=== PATIENT | male | born 1980 | race Caucasian/White ===

== ENCOUNTER 2016-05-25 17:33 | Emergency (ER) | payer MEDICAID ==
[2016-05-25] MEDS ORDERED: 0.9 % SODIUM CHLORIDE 1,000 ML BAG IV ONE (17:47)
[2016-05-25] MEDS ORDERED: HYDROMORPHONE HCL 1 MG/ML CPJ IVP ONE ×3 (17:47→20:46)
[2016-05-25] MEDS ORDERED: ONDANSETRON HCL IV 4 MG/2 ML VIAL IV ONE (17:47)
--- NOTE | 2016-05-25 18:06 | Emergency Department Record ---
History of Present Illness - General Chief Complaint: Abdominal Pain Stated Complaint: PAIN/CANCER PATIENT Time Seen by Provider: 05/25/16 17:37 Source: Patient, Family Mode of Arrival: Wheelchair Limitations: No limitations - History of Present Illness Initial Comments: 36 yo male presents with abdominal pain. The patient was diagnosed with colorectal cancer in May of 2015. He has had a colostomy after a resection. His surgeon is Dr Reid at [facility]. He reports being admitted to [facility] a couple weeks ago with rectal abscess. Last night he developed left sided abdominal pain that spread across the abdomen in the lower regions. He also noted what looks like urine coming from the rectum. He has noted less output from the ostomy the last 2 days as well. The patient had pain last year. He was seen at [place] and had a Ct scan that was abnormal. The cancer was found at that time. His colostomy was placed in 2015. 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 He has had to have 3 abscess drained to date. No PCP Onset/Timin -: Days(s) Location: LLQ, RLQ Radiation: Back, Suprapubic, Other Severity: Moderate Quality: Aching Consistency: Constant Improves With: Nothing Worsens With: Movement Context: Recent surgery/procedure Associated Symptoms: Anorexia, Nausea, Vomiting - Related Data Home Medications Medication Instructions Recorded Confirmed Last Taken No Home Med [NO HOME MEDS] 05/25/16 05/25/16 Unknown Allergies Allergy/AdvReac Type Severity Reaction Status Date / Time No Known Drug Allergies Allergy Verified 05/25/16 17:46 Travel Screening - Travel/Exposure Within Last 30 Days Have you traveled within the last 30 days?: No - Travel/Exposure Within Last Year Have you traveled outside the [place] in the last year?: No - Additonal Travel Details Have you been exposed to anyone with a communicable illness?: No - Travel Symptoms Symptom Screening: None Review of Systems Constitutional: Reports: Chills, Fever (subjective), Malaise Eyes: Denies: Eye discharge, Eye pain, Photophobia, Vision change ENT: Denies: Congestion, Ear pain, Throat pain Respiratory: Denies: Cough, Dyspnea, Hemoptysis, Stridor, Wheezes Cardiovascular: Denies: Chest pain, Palpitations, Syncope Endocrine: Reports: Fatigue Gastrointestinal: Reports: As per HPI, Abdominal pain, Nausea, Vomiting, Other ( urine like material coming from the rectum). Denies: Constipation, Diarrhea, Hematemesis, Hematochezia Genitourinary: Denies: Dysuria, Frequency, Hematuria, Incontinence, Urgency Musculoskeletal: Reports: Back pain. Denies: Arthralgia, Myalgia Skin: Denies: Bruising, Change in color, Rash Neurological: Denies: Confusion, Headache Psychiatric: Denies: Anxiety Hematological/Lymphatic: Denies: Blood Clots, Easy bleeding, Easy bruising Past Medical History - SOCIAL HISTORY Smoking Status: Never smoker Alcohol Use: None Drug Use: None - RESPIRATORY Hx Respiratory Disorders: No - CARDIOVASCULAR Hx Cardio Disorders: No - NEURO Hx Neuro Disorders: No - GI Comment:: CA diagnosed 05/2015 - Hx Bladder Problem: Yes - ENDOCRINE Hx Diabetes: No Hx Thyroid Disease: No - HEMATOLOGY/ONCOLOGY Hx Cancer: Yes Family Medical History Any Significant Family History?: Yes Physical Exam - General General Appearance: Alert, Oriented x3, Cooperative, No acute distress Limitations: No limitations - Head Head exam: Atraumatic, Normocephalic, Normal inspection - Eye Eye exam: Normal appearance, PERRL. negative: Conjunctival injection, Periorbital swelling - ENT ENT exam: Normal exam, Mucous membranes moist, Normal external ear exam, Normal orophraynx, TM's normal bilaterally Ear exam: Normal external inspection. negative: External canal tenderness Nasal Exam: Normal inspection. negative: Discharge, Sinus tenderness Mouth exam: Normal external inspection, Tongue normal Teeth exam: Normal inspection. negative: Dental caries Throat exam: Normal inspection. negative: Tonsillar erythema, Tonsillar exudate - Neck Neck exam: Normal inspection, Full ROM. negative: Tenderness - Respiratory Respiratory exam: Normal lung sounds bilaterally. negative: Respiratory distress - Cardiovascular Cardiovascular Exam: Regular rate, Normal rhythm, Normal heart sounds - GI/Abdominal GI/Abdominal exam: Soft, Tenderness. negative: Distended, Rigid - Rectal Rectal exam: Deferred - exam: Deferred - Extremities Extremities exam: Normal inspection, Full ROM, Normal capillary refill. negative: Tenderness - Back Back exam: Reports: Normal inspection, Full ROM. Denies: Muscle spasm, Rash noted, Tenderness - Neurological Neurological exam: Alert, Normal gait, Oriented X3, Reflexes normal - Psychiatric Psychiatric exam: Anxious - Skin Skin exam: Dry, Intact, Normal color, Warm Course Vital Signs 05/25/16 17:39 Temperature 98.5 F Pulse Rate 84 Respiratory 20 Rate Blood Pressure 135/76 Pulse Ox 100 - Reevaluation(s) Reevaluation #1: The CBC was reviewed. The WBC count is 24,ooo [facility] records were obtained: -Admit 05/07/[address] Bolanos, Perirectal abscess, CT with contrast, progressive soft tissue enlargement of the lower rectum, presacral space, progressive abscess medial left buttock -Op Note 05/08/16 I and D rectal abscess Dr Whalen -H and P Perirectal abscess, ischiorectal abscess and fistula, rectal adenocarcinoma -DC Summary 05/09/16 Dr Millard. WBC 17 at that time -04/19/16 CT thickening of rectal wall, no abscesses noted. 05/25/16 18:23 05/25/16 18:28 Reevaluation #2: The patient is resting more comfortably at this time after Dilaudid. 05/25/16 18:31 The case was signed out to Dr Trejo for further review of results and CT scan 05/25/16 18:44 Medical Decision Making - Lab Data Result diagrams: 05/25/16 17:35 05/25/16 17:35 Disposition Forms: Patient Portal Access
[2016-05-25 18:13] LABS: BASO % 0.1 % (0-6); EOS % 0.5 % (0-6); HEMATOCRIT 33.4 % (42.0-52.0); HEMOGLOBIN 10.8 gm/dl (14.0-18.0); LYMPH % 3.8 % (16-45); MEAN CELL VOLUME 82.7 fl (81-97); MEAN CORPUSCULAR HEMOGLOBIN 26.7 pg (27-33); MEAN CORPUSCULAR HGB CONC 32.3 g/dl (32-36); MEAN PLATELET VOLUME 8.6 fl (7.4-10.4); MONO % 8.6 % (0-9); PLATELET COUNT 620 K/uL (130-400); RED BLOOD COUNT 4.04 M/uL (4.40-5.70); RED CELL DISTRIBUTION WIDTH 15.6 % (11.5-14.5)
[2016-05-25 18:16] LABS: WHITE BLOOD COUNT W/O DIFF 24.2 K/uL (4.2-12.2)
[2016-05-25 18:21] LABS: BILIRUBIN,TOTAL 0.42 mg/dL (0.2-1.3); BLOOD UREA NITROGEN 15 mg/dL (9-20)
[2016-05-25 18:31] LABS: ALKALINE PHOSPHATASE 146 U/L (38-126); ALT/SGPT 28 U/L (21-72); ANION GAP 16.1 (7-16); AST/SGOT 13 U/L (17-59); CARBON DIOXIDE 24.9 mmol/L (22-30); CREATININE 0.7 mg/dL (0.66-1.25); EST GLOMERULAR FILTRATION RATE > 60 ml/min; GLUCOSE,RANDOM 140 mg/dL (70-110)
[2016-05-25 18:56] LABS: PLATELET ESTIMATE INCREASED (NORMAL)
--- NOTE | 2016-05-25 19:34 | Emergency Department Record ---
History of Present Illness - General Chief Complaint: Abdominal Pain Stated Complaint: PAIN/CANCER PATIENT Time Seen by Provider: 05/25/16 17:37 Source: Patient, Family Mode of Arrival: Wheelchair Limitations: No limitations - History of Present Illness Onset/Timin -: Days(s) Location: LLQ, RLQ Radiation: Back, Suprapubic, Other Severity: Moderate Quality: Aching Consistency: Constant Improves With: Nothing Worsens With: Movement Context: Recent surgery/procedure Associated Symptoms: Anorexia, Nausea, Vomiting - Related Data Home Medications Medication Instructions Recorded Confirmed Last Taken No Home Med [NO HOME MEDS] 05/25/16 05/25/16 Unknown Allergies Allergy/AdvReac Type Severity Reaction Status Date / Time No Known Drug Allergies Allergy Verified 05/25/16 17:46 Travel Screening - Travel/Exposure Within Last 30 Days Have you traveled within the last 30 days?: No - Travel/Exposure Within Last Year Have you traveled outside the [place] in the last year?: No - Additonal Travel Details Have you been exposed to anyone with a communicable illness?: No - Travel Symptoms Symptom Screening: None Review of Systems Constitutional: Reports: Chills, Fever (subjective), Malaise Eyes: Denies: Eye discharge, Eye pain, Photophobia, Vision change ENT: Denies: Congestion, Ear pain, Throat pain Respiratory: Denies: Cough, Dyspnea, Hemoptysis, Stridor, Wheezes Cardiovascular: Denies: Chest pain, Palpitations, Syncope Endocrine: Reports: Fatigue Gastrointestinal: Reports: As per HPI, Abdominal pain, Nausea, Vomiting, Other ( urine like material coming from the rectum). Denies: Constipation, Diarrhea, Hematemesis, Hematochezia Genitourinary: Denies: Dysuria, Frequency, Hematuria, Incontinence, Urgency Musculoskeletal: Reports: Back pain. Denies: Arthralgia, Myalgia Skin: Denies: Bruising, Change in color, Rash Neurological: Denies: Confusion, Headache Psychiatric: Denies: Anxiety Hematological/Lymphatic: Denies: Blood Clots, Easy bleeding, Easy bruising Past Medical History - SOCIAL HISTORY Smoking Status: Never smoker Alcohol Use: None Drug Use: None - RESPIRATORY Hx Respiratory Disorders: No - CARDIOVASCULAR Hx Cardio Disorders: No - NEURO Hx Neuro Disorders: No - GI Comment:: CA diagnosed 05/2015 - Hx Bladder Problem: Yes - ENDOCRINE Hx Diabetes: No Hx Thyroid Disease: No - HEMATOLOGY/ONCOLOGY Hx Cancer: Yes Family Medical History Any Significant Family History?: Yes Physical Exam - General Limitations: No limitations Course Vital Signs 05/25/16 05/25/16 17:39 18:43 Temperature 98.5 F Pulse Rate 84 Pulse Rate [ 83 Pulse Ox Probe] Respiratory 20 16 Rate Blood Pressure 135/76 Blood Pressure 142/71 [Right Arm] Pulse Ox 100 97 - Reevaluation(s) Reevaluation #1: 05/25/16 19:33 Patient seen and examined following bedside turnover with previous provider, patient was updated on all results thus far, repeat analgesia administered. Patient is drinking oral contrast for his CT imaging. Reevaluation #2: 05/25/16 21:25 Patient is back from CT imaging, Dilaudid re-ordered for pain symptoms. Awaiting radiologist interpretation. Reevaluation #3: 05/25/16 21:37 UA reviewed, 4+ bacteria, WBCs TNTC, RBC's TNTC. Zosyn ordered to infuse. CT interpretation is pending. Reevaluation #4: 05/25/16 21:53 CT Abdomen and Pelvis: 7.9 x 6.5 cm mass rectal region with extension into the bladder posteriorly. [facility] call contacted regarding transfer, will page both on-call for colo- rectal as well as Hospitalist. Reevaluation #5: 05/25/16 22:08 Case was discussed with Dr. Whalen, findings c/w tumor without acute surgical process. Dr. Whalen reports previous areas thought to be abscess was actually necrotic tumor. Will await Hospitalist to return call for transfer. 22:17 Case was discussed with Dr. Cox, will accept transfer. 05/25/16 22:17 Medical Decision Making - Lab Data Result diagrams: 05/25/16 17:35 05/25/16 17:35 Lab Results 05/25/16 05/25/16 05/25/16 Range/Units 17:35 17:35 17:35 WBC 24.2 H* (4.2-12.2) K/uL RBC 4.04 L (4.40-5.70) M/uL Hgb 10.8 L (14.0-18.0) gm/dl Hct 33.4 L (42.0-52.0) % MCV 82.7 (81-97) fl MCH 26.7 L (27-33) pg MCHC 32.3 (32-36) g/dl RDW 15.6 H (11.5-14.5) % Plt Count 620 H (130-400) K/uL MPV 8.6 (7.4-10.4) fl Neutrophils % 87.0 H (47-80) % Band Neutrophils % 0.0 (0-5) % Lymphocytes % 5.0 L (16-45) % Monocytes % 8.0 (0-9) % Eosinophils % 0.0 (0-6) % Basophils % 0.0 (0-6) % Platelet Estimate Increased (NORMAL) Sodium 141 (136-145) mmol/L Potassium 3.8 (3.5-5.1) mmol/L Chloride 100 (98-107) mmol/L Carbon Dioxide 24.9 (22-30) mmol/L Anion Gap 16.1 H (7-16) BUN 15 (9-20) mg/dL Creatinine 0.7 (0.66-1.25) mg/dL Estimated GFR > 60 ml/min Random Glucose 140 H (70-110) mg/dL Lactic Acid 1.6 (0.7-2.1) mmol/L Calcium 9.2 (8.5-10.1) mg/dL Total Bilirubin 0.42 (0.2-1.3) mg/dL Direct Bilirubin 0.0 (0-0.3) mg/dL AST 13 L (17-59) U/L ALT 28 (21-72) U/L Alkaline Phosphatase 146 H (38-126) U/L C-Reactive Protein (0.0-0.9) mg/dL Total Protein 8.0 (6.3-8.2) gm/dL Albumin 4.0 (3.5-5.0) gm/dL Lipase Cancelled 05/25/16 Range/Units 17:35 WBC (4.2-12.2) K/uL RBC (4.40-5.70) M/uL Hgb (14.0-18.0) gm/dl Hct (42.0-52.0) % MCV (81-97) fl MCH (27-33) pg MCHC (32-36) g/dl RDW (11.5-14.5) % Plt Count (130-400) K/uL MPV (7.4-10.4) fl Neutrophils % (47-80) % Band Neutrophils % (0-5) % Lymphocytes % (16-45) % Monocytes % (0-9) % Eosinophils % (0-6) % Basophils % (0-6) % Platelet Estimate (NORMAL) Sodium (136-145) mmol/L Potassium (3.5-5.1) mmol/L Chloride (98-107) mmol/L Carbon Dioxide (22-30) mmol/L Anion Gap (7-16) BUN (9-20) mg/dL Creatinine (0.66-1.25) mg/dL Estimated GFR ml/min Random Glucose (70-110) mg/dL Lactic Acid (0.7-2.1) mmol/L Calcium (8.5-10.1) mg/dL Total Bilirubin (0.2-1.3) mg/dL Direct Bilirubin (0-0.3) mg/dL AST (17-59) U/L ALT (21-72) U/L Alkaline Phosphatase (38-126) U/L C-Reactive Protein 22.9 H (0.0-0.9) mg/dL Total Protein (6.3-8.2) gm/dL Albumin (3.5-5.0) gm/dL Lipase Disposition Disposition: Transfer Clinical Impression: Pelvic mass in male UTI (urinary tract infection) Qualifiers: Urinary tract infection type: acute cystitis Hematuria presence: with hematuria Qualified Code(s): N30.01 - Acute cystitis with hematuria Leukocytosis Qualifiers: Leukocytosis type: unspecified Qualified Code(s): D72.829 - Elevated white blood cell count, unspecified Disposition: Acute Care Hospital Transfer Transfer To: [facility] Reason For Transfer: [place]-rectal evaluation Accepting Physician: Kenyn Connors w/Accepting Physician: 22:18 Forms: Patient Portal Access
[2016-05-25] MEDS ORDERED: 0.9 % SODIUM CHLORIDE 1000ML 1,000 ML IV SCH (19:45)
[2016-05-25 20:29] LABS: URINE APPEARANCE TURBID; URINE BILIRUBIN NEGATIVE (NEGATIVE); URINE BLOOD LARGE (NEGATIVE); URINE COLOR YELLOW; URINE GLUCOSE (UA) NEGATIVE (NEGATIVE); URINE KETONE 15 mg/dL (NEGATIVE); URINE LEUKOCYTE ESTERASE MODERATE (NEGATIVE); URINE NITRITE NEGATIVE (NEGATIVE); URINE UROBILINOGEN 0.2 E.U./dL (0.20 - 1.00)
[2016-05-25 20:35] LABS: URINE BACTERIA 4+
[2016-05-25] MEDS ORDERED: HYDROMORPHONE HCL 1 MG/ML CPJ IM ONE (20:46)
[2016-05-25] MEDS ORDERED: PIPERACILLIN SODIUM/TAZOBACTAM 4.5 GM in 0.9 % SODIUM CHLORIDE 100ML 100 ML IVPB ONE (21:36)
[2016-05-25] MEDS ORDERED: HYDROMORPHONE HCL 1 MG/ML CPJ IVP PRN (22:57)
== END 2016-05-25 23:18 | disposition short-term general hospital (02) ==
LOC: ER 17:33
DX: R19.00 Intra-abdominal and pelvic swelling, mass and lump, unspecified site (principal); N30.01 Acute cystitis with hematuria; R11.2 Nausea with vomiting, unspecified; D72.89 Other specified disorders of white blood cells; Z85.038 Personal history of other malignant neoplasm of large intestine
CPT/HCPCS: 74177; 80048; 80076; 81001; 83605; 85027; 86140; 96361; 96365; 96375; 96376; 99285; J1170; J2405; J2543; J7030